=== PATIENT | male | born 2000 | race American Indian/Alaskan Native ===

== ENCOUNTER 2022-02-19 20:51 | Emergency (ER) | payer MEDICAID, OTHER ==
[2022-02-19 22:34] LABS: ANION GAP 10.6 mEq/L (7-13); CHLORIDE,CL 103 mmol/L (98-107); SODIUM,NA 140 mmol/L (136-145)
[2022-02-19 22:43] LABS: ESTIMATED GFR 101 mL/min (>=60)
[2022-02-19] MEDS ORDERED: Ketorolac 30 MG/ML SDV IM ONE (22:48)
== END 2022-02-19 23:09 | disposition home or self-care (01) ==
LOC: DL.ED 20:51
DX: R07.89 Other chest pain (principal); Z88.0 Allergy status to penicillin; Z72.0 Tobacco use
CPT/HCPCS: 36415; 71045; 80053; 83735; 84484; 85025; 86140; 93005; 96372; 99285; J1885

== ENCOUNTER 2022-03-30 06:35 | Emergency (ER) | payer OTHER, MEDICAID ==
[2022-03-30 06:30] LABS: ANION GAP 13.2 mEq/L (7-13); CHLORIDE,CL 104 mmol/L (98-107); SODIUM,NA 138 mmol/L (136-145)
[2022-03-30 06:31] LABS: ESTIMATED GFR 123 mL/min (>=60)
[2022-03-30 06:33] LABS: PTT,PARTIAL THROMBOPLSTIN TIME 28.5 SEC (22.0-34.0)
[~2022-03-30 06:35] MED LIST: Sodium Chloride 0.9% 10 ML Syringe FLUSH PRN
[2022-03-30 07:28] LABS: AMPHETAMINES,URINE NEGATIVE (NEGATIVE); BARBITURATES,URINE NEGATIVE (NEGATIVE); BENZODIAZEPINE,URINE NEGATIVE (NEGATIVE); MDMA (ECSTASY), URINE NEGATIVE (NEGATIVE); METHADONE,URINE NEGATIVE (NEGATIVE); METHAMPHETAMINES,URINE NEGATIVE (NEGATIVE); OPIATES,URINE NEGATIVE (NEGATIVE); OXYCODONE,URINE NEGATIVE (NEGATIVE); PHENCYCLIDINE,URINE NEGATIVE (NEGATIVE); TCA,URINE NEGATIVE (NEGATIVE)
== END 2022-03-30 07:37 | disposition home or self-care (01) ==
LOC: DL.ED 06:35
DX: F10.129 Alcohol abuse with intoxication, unspecified (principal); Z88.0 Allergy status to penicillin; Y90.6 Blood alcohol level of 120-199 mg/100 ml; V89.2XXA Person injured in unspecified motor-vehicle accident, traffic, initial encounter; Y92.410 Unspecified street and highway as the place of occurrence of the external cause
CPT/HCPCS: 36415; 70450; 71045; 72125; 80053; 80305; 80307; 85025; 85610; 85730; 99285; J3490

== ENCOUNTER 2022-06-25 22:23 | Emergency (ER) | payer OTHER, MEDICAID ==
[2022-06-25] MEDS ORDERED: Cyclobenzaprine 10 MG Tab PO ONE (22:24)
[2022-06-25] MEDS ORDERED: Ketorolac 30 MG/ML SDV IM ONE (23:01)
[2022-06-25] MEDS ORDERED: Cyclobenzaprine 10 MG Tab ONE (23:12)
== END 2022-06-25 23:25 | disposition home or self-care (01) ==
LOC: DL.ED 22:23
DX: S39.012A Strain of muscle, fascia and tendon of lower back, initial encounter (principal); Z88.0 Allergy status to penicillin; X50.9XXA Other and unspecified overexertion or strenuous movements or postures, initial encounter; Y93.67 Activity, basketball
CPT/HCPCS: 96372; 99283; A9270; J1885

== ENCOUNTER 2022-08-17 11:49 | Emergency (ER) | payer MEDICAID | END 2022-08-17 12:25 | disposition home or self-care (01) | LOC: DL.ED 11:49 | DX: B34.9 Viral infection, unspecified (principal); Z88.0 Allergy status to penicillin; Z72.0 Tobacco use | CPT/HCPCS: 87081; 87430; 99282; 99283 ==